=== PATIENT | male | born 1985 | race Caucasian/White ===

== ENCOUNTER → 2018-12-31 | Outpatient (CLI) | payer BC ==
--- NOTE | 2018-12-31 13:24 | RAD ---
EXAM: Abdomen sonogram. HISTORY: Elevated liver enzymes laboratory values. TECHNIQUE: Sonographic imaging of the abdomen was performed. COMPARISON: None. FINDINGS: The liver is enlarged. There is hepatic steatosis. No focal hepatic lesion is seen. The gallbladder is unremarkable. The spleen is normal in size. The common bile duct is normal in caliber. The aorta is normal in caliber. The inferior vena cava is patent. The pancreas is obscured due to bowel gas. IMPRESSION: 1. Hepatomegaly and hepatic steatosis. 2. Obscured pancreas due to bowel gas. Electronically signed by: Nakita Cheek MD (12/31/2018 1:21 PM) [id number]
== END | disposition home or self-care (01) ==
LOC: US 09:36
PROVIDERS: ATTEND Nurse Practitioner Family
DX: K76.0 Fatty (change of) liver, not elsewhere classified (principal); R16.0 Hepatomegaly, not elsewhere classified; F10.10 Alcohol abuse, uncomplicated
CPT/HCPCS: 76700